=== PATIENT | female | born 1955 | race Caucasian/White ===

== ENCOUNTER 2023-01-06 11:06 | Outpatient (CLI) | payer MEDICARE | END 2023-01-06 11:07 | disposition home or self-care (01) | LOC: CSHMAMMO 11:06 | PROVIDERS: ATTEND Nurse Practitioner Family | DX: Z13.820 Encounter for screening for osteoporosis (principal); M81.0 Age-related osteoporosis without current pathological fracture; M85.851 Other specified disorders of bone density and structure, right thigh | CPT/HCPCS: 77063; 77067; 77080 ==